=== PATIENT | male | born 1980 | race Caucasian/White ===

== ENCOUNTER 2020-06-13 12:47 | Inpatient (IN) | payer OTHER, SELFPAY ==
[~2020-06-13] VITALS: Ht 190.5 cm; Wt 108.9 kg
[2020-06-13 13:07] LABS: ABG BASE EXCESS -2.7 mmol/L (-2.0-3.0); ABG HCO3 20.6 mmol/L (21.0-28.0); ABG OXYGEN SATURATION 90.5 % (95.0-99.0); ABG PCO2 32 mmHg (35-48)
[2020-06-13 13:26] LABS: BASOPHILS % (AUTO) 0.2 % (0.0-5.0); HEMATOCRIT 42.7 % (42-54); LYMPHOCYTES % (AUTO) 7.6 % (21.0-51.0); MEAN CORPUSCULAR HEMOGLOBIN 29.1 pg (27.0-33.0); MEAN CORPUSCULAR HGB CONC 34.4 g/dL (32.0-36.0); MEAN CORPUSCULAR VOLUME 84.6 fL (79-99); MONOCYTES % (AUTO) 5.5 % (3.0-13.0); NEUTROPHILS % (AUTO) 85.3 % (40.0-77.0); PLATELET COUNT (AUTO) 177 K/uL (130-400); RED BLOOD CELL COUNT(AUTO) 5.05 MIL/uL (4.50-6.20); RED CELL DISTRIBUTION WIDTH 12.1 % (11.0-15.5); WHITE BLOOD COUNT (AUTO) 9.6 K/uL (4.8-10.8)
[2020-06-13 13:30] LABS: CREATININE 1.1 mg/dL (0.5-1.5); POTASSIUM 3.5 mmol/L (3.5-5.1)
[2020-06-13] MEDS ORDERED: DEXAMETHASONE SOD PHOSPHATE 10MG/ML 1ML VIAL ONE (13:31)
[2020-06-13] MEDS ORDERED: ALBUTEROL INHALER 90MCG/INH IH ONE (13:31)
[2020-06-13] MEDS ORDERED: ASPIRIN 325 MG TABLET ONE (13:31)
[2020-06-13] MEDS ORDERED: AZITHROMYCIN 250 MG TABLET PO ONE (13:32)
[2020-06-13] MEDS ORDERED: 0.9%NACL 100ML 100 ML IV ONE (13:32)
[2020-06-13] MEDS ORDERED: CEFTRIAXONE 1G VIAL ONE (13:32)
[2020-06-13 13:35] LABS: BILIRUBIN,TOTAL 0.5 mg/dL (0.2-1.0); TOTAL PROTEIN, SERUM 7.1 g/dL (6.0-8.3)
[2020-06-13 13:47] LABS: INR 1.04 (0.85-1.15); PROTHROMBIN TIME 11.1 SEC (9.6-11.6)
[2020-06-13 13:48] LABS: PARTIAL THROMBOPLASTIN TIME 28.1 SEC (26.3-35.5)
[2020-06-13 14:00] LABS: B-TYPE NATRIURETIC PEPTIDE 109 pg/mL (0-100)
[2020-06-13 16:30] LABS: APPEARANCE,URINE CLEAR (CLEAR); BILIRUBIN,URINE NEGATIVE (NEGATIVE); COLOR,URINE YELLOW (YELLOW); GLUCOSE, URINE (UA) NEGATIVE (NEGATIVE); KETONES,URINE NEGATIVE (NEGATIVE); LEUKOCYTE ESTERASE ,URINE NEGATIVE (NEGATIVE); NITRATE,URINE NEGATIVE (NEGATIVE); OCCULT BLOOD,URINE NEGATIVE (NEGATIVE); PROTEIN,URINE 100 mg/dL (NEGATIVE)
[2020-06-13] MEDS ORDERED: ERGOCALCIFEROL (VITAMIN D2) 50,000 UNIT CAPSULE PO ONE (17:00)
[2020-06-13] MEDS ORDERED: AZITHROMYCIN 500MG+NS 250ML 250 ML IV SCH (17:00)
[2020-06-13] MEDS ORDERED: ONDANSETRON 4MG INJ IV PRN (17:00)
[2020-06-13] MEDS: DOXYCYCLINE 100MG+NS 250ML 250 ML IV SCH (17:00)
[2020-06-13 17:09] LABS: BACTERIA,URINE Few /HPF (None Seen); MUCUS,URINE Few LPF (None Seen); RBC,URINE 0-1 /HPF (0-1); SQUAMOUS EPITHELIAL CELL,UR Few /HPF (0-2)
[2020-06-13] MEDS ORDERED: ACETAMINOPHEN 325 MG TAB ONE (18:46)
[2020-06-13] MEDS ORDERED: 0.9% NACL 250ML 250 ML IV ONE ×2 (19:29→22:24)
[2020-06-13] MEDS: FAMOTIDINE 20MG VIAL IV SCH (21:00)
[2020-06-13] MEDS: CEFTRIAXONE 1G VIAL IV SCH (21:00)
[2020-06-13] MEDS ORDERED: FAMOTIDINE 20MG VIAL IV ONE (21:03)
[2020-06-14] MEDS ORDERED: CEFTRIAXONE 1G VIAL ONE (01:30)
[2020-06-14 04:19] LABS: BASOPHILS % (AUTO) 0.1 % (0.0-5.0); HEMATOCRIT 39.8 % (42-54); LYMPHOCYTES % (AUTO) 10.8 % (21.0-51.0); MEAN CORPUSCULAR HEMOGLOBIN 28.4 pg (27.0-33.0); MEAN CORPUSCULAR HGB CONC 34.2 g/dL (32.0-36.0); MEAN CORPUSCULAR VOLUME 83.1 fL (79-99); MONOCYTES % (AUTO) 7.7 % (3.0-13.0); NEUTROPHILS % (AUTO) 79.2 % (40.0-77.0); PLATELET COUNT (AUTO) 191 K/uL (130-400); RED BLOOD CELL COUNT(AUTO) 4.79 MIL/uL (4.50-6.20); RED CELL DISTRIBUTION WIDTH 11.9 % (11.0-15.5); WHITE BLOOD COUNT (AUTO) 6.9 K/uL (4.8-10.8)
[2020-06-14 04:43] LABS: ALBUMIN 2.7 g/dL (3.5-5.0); BILIRUBIN,TOTAL 0.4 mg/dL (0.2-1.0); POTASSIUM 4.2 mmol/L (3.5-5.1); TOTAL PROTEIN, SERUM 6.8 g/dL (6.0-8.3)
[2020-06-14 04:56] LABS: CRP QUANTITATIVE 259.6 mg/L (0.00-9.0)
[2020-06-14] MEDS ORDERED: ACETAMINOPHEN 325 MG TAB ONE (06:45)
[2020-06-14] MEDS: ENOXAPARIN SODIUM 40 MG/0.4 ML SYRINGE SQ SCH (10:27)
[2020-06-14] MEDS: ASCORBIC ACID 500 MG TAB PO SCH (10:27)
[2020-06-14] MEDS: CEFTRIAXONE 1G VIAL IV SCH ×2 (10:27→20:06)
[2020-06-14] MEDS: ZINC SULFATE 220 CAPSULE PO SCH (10:27)
[2020-06-14] MEDS: FAMOTIDINE 20MG VIAL IV SCH ×2 (10:27→20:03)
[2020-06-14] MEDS ORDERED: PHARMACY COMMUNICATION MISC SCH (12:00)
[2020-06-14] MEDS ORDERED: REMDESIVIR (EUA) 520 200 MG in 0.9% NACL 250ML 250 ML IV ONE (12:15)
[2020-06-14] MEDS ORDERED: COMPOUND IV REFRIGERATED 1 EACH IVSOLN MISC PRN (12:15)
[2020-06-14] MEDS ORDERED: DEXAMETHASONE SOD PHOSPHATE 4 MG/ML 1ML VIAL IVP SCH (16:30)
[2020-06-14] MEDS: DOXYCYCLINE 100MG+NS 250ML 250 ML IV SCH (16:51)
[2020-06-14 18:09] VITALS: BP 148/89
[2020-06-14 19:00] VITALS: BP 137/84
[2020-06-14] MEDS: DEXAMETHASONE SOD PHOSPHATE 4 MG/ML 1ML VIAL IVP SCH (20:03)
[2020-06-14] MEDS ORDERED: AZITHROMYCIN 500MG+NS 250ML 250 ML IV SCH (21:00)
[2020-06-14 23:58] VITALS: BP 134/81
[2020-06-14] MEDS: ACETAMINOPHEN 325 MG TAB PO PRN (23:58)
[2020-06-15 04:00] VITALS: BP 131/88
[2020-06-15] MEDS: DOXYCYCLINE 100MG+NS 250ML 250 ML IV SCH ×2 (04:32→16:51)
[2020-06-15 04:50] LABS: BASOPHILS % (AUTO) 0.1 % (0.0-5.0); HEMATOCRIT 41.1 % (42-54); LYMPHOCYTES % (AUTO) 11.6 % (21.0-51.0); MEAN CORPUSCULAR HEMOGLOBIN 28.2 pg (27.0-33.0); MEAN CORPUSCULAR HGB CONC 33.1 g/dL (32.0-36.0); MEAN CORPUSCULAR VOLUME 85.3 fL (79-99); MONOCYTES % (AUTO) 7.8 % (3.0-13.0); NEUTROPHILS % (AUTO) 78.3 % (40.0-77.0); PLATELET COUNT (AUTO) 245 K/uL (130-400); RED BLOOD CELL COUNT(AUTO) 4.82 MIL/uL (4.50-6.20); RED CELL DISTRIBUTION WIDTH 11.8 % (11.0-15.5); WHITE BLOOD COUNT (AUTO) 8.8 K/uL (4.8-10.8)
[2020-06-15 05:05] LABS: ALBUMIN 2.6 g/dL (3.5-5.0); BILIRUBIN,TOTAL 0.5 mg/dL (0.2-1.0); CRP QUANTITATIVE 115.4 mg/L (0.00-9.0); POTASSIUM 4.2 mmol/L (3.5-5.1); TOTAL PROTEIN, SERUM 6.6 g/dL (6.0-8.3)
[2020-06-15] MEDS: PHARMACY COMMUNICATION MISC SCH (06:00)
[2020-06-15 08:30] VITALS: BP 143/91
[2020-06-15] MEDS: FAMOTIDINE 20MG VIAL IV SCH ×2 (09:52→20:43)
[2020-06-15] MEDS: ZINC SULFATE 220 CAPSULE PO SCH (09:52)
[2020-06-15] MEDS: ASCORBIC ACID 500 MG TAB PO SCH (09:52)
[2020-06-15] MEDS: CEFTRIAXONE 1G VIAL IV SCH ×2 (09:53→20:43)
[2020-06-15] MEDS: ENOXAPARIN SODIUM 40 MG/0.4 ML SYRINGE SQ SCH (09:54)
[2020-06-15] MEDS: DEXAMETHASONE SOD PHOSPHATE 4 MG/ML 1ML VIAL IVP SCH ×2 (10:02→19:31)
[2020-06-15 11:00] VITALS: BP 138/92
[2020-06-15] MEDS: REMDESIVIR (EUA) 520 100 MG in 0.9% NACL 250ML 250 ML IV SCH (13:30)
[2020-06-15 16:00] VITALS: BP 142/83
[2020-06-15 19:00] VITALS: BP_SYST 121; BP_SYST 140; BP_DIAS 69; BP_DIAS 83
[2020-06-15] MEDS: ACETAMINOPHEN 325 MG TAB PO PRN (20:47)
[2020-06-16] VITALS: BP 135/82
[2020-06-16] MEDS: ACETAMINOPHEN 325 MG TAB PO PRN ×2 (01:49→22:26)
[2020-06-16 04:00] VITALS: BP 137/96
[2020-06-16 04:59] LABS: BASOPHILS % (AUTO) 0.4 % (0.0-5.0); HEMATOCRIT 42.1 % (42-54); LYMPHOCYTES % (AUTO) 12.2 % (21.0-51.0); MEAN CORPUSCULAR HEMOGLOBIN 28.8 pg (27.0-33.0); MEAN CORPUSCULAR VOLUME 84.7 fL (79-99); MONOCYTES % (AUTO) 9.6 % (3.0-13.0); NEUTROPHILS % (AUTO) 73.1 % (40.0-77.0); PLATELET COUNT (AUTO) 285 K/uL (130-400); RED BLOOD CELL COUNT(AUTO) 4.97 MIL/uL (4.50-6.20); RED CELL DISTRIBUTION WIDTH 11.5 % (11.0-15.5); WHITE BLOOD COUNT (AUTO) 7.4 K/uL (4.8-10.8)
[2020-06-16] MEDS: DOXYCYCLINE 100MG+NS 250ML 250 ML IV SCH ×2 (05:21→17:24)
[2020-06-16 05:26] LABS: ALBUMIN 2.6 g/dL (3.5-5.0); BILIRUBIN,TOTAL 0.5 mg/dL (0.2-1.0); CRP QUANTITATIVE 68.4 mg/L (0.00-9.0); POTASSIUM 4.2 mmol/L (3.5-5.1); TOTAL PROTEIN, SERUM 6.7 g/dL (6.0-8.3)
[2020-06-16 08:00] VITALS: BP 126/70
[2020-06-16] MEDS: FAMOTIDINE 20MG VIAL IV SCH ×2 (08:51→20:53)
[2020-06-16] MEDS: ASCORBIC ACID 500 MG TAB PO SCH (08:51)
[2020-06-16] MEDS: DEXAMETHASONE SOD PHOSPHATE 4 MG/ML 1ML VIAL IVP SCH ×2 (08:51→20:04)
[2020-06-16] MEDS: ZINC SULFATE 220 CAPSULE PO SCH (08:51)
[2020-06-16] MEDS: CEFTRIAXONE 1G VIAL IV SCH ×2 (08:51→20:53)
[2020-06-16] MEDS: ENOXAPARIN SODIUM 40 MG/0.4 ML SYRINGE SQ SCH (08:53)
[2020-06-16 12:00] VITALS: BP 143/96
[2020-06-16] MEDS: REMDESIVIR (EUA) 520 100 MG in 0.9% NACL 250ML 250 ML IV SCH (13:23)
[2020-06-16 18:23] VITALS: BP 144/78
[2020-06-16 19:00] VITALS: BP 142/81
[2020-06-17] VITALS: BP 134/79
[2020-06-17 04:00] VITALS: BP 124/76
[2020-06-17] MEDS: DOXYCYCLINE 100MG+NS 250ML 250 ML IV SCH (05:41)
[2020-06-17 05:50] LABS: BASOPHILS % (AUTO) 0.6 % (0.0-5.0); EOSINOPHILS % (AUTO) 0.1 % (0.0-8.0); HEMATOCRIT 44.5 % (42-54); LYMPHOCYTES % (AUTO) 11.9 % (21.0-51.0); MEAN CORPUSCULAR HEMOGLOBIN 28.3 pg (27.0-33.0); MEAN CORPUSCULAR HGB CONC 34.2 g/dL (32.0-36.0); MEAN CORPUSCULAR VOLUME 82.7 fL (79-99); MONOCYTES % (AUTO) 10.2 % (3.0-13.0); NEUTROPHILS % (AUTO) 69.7 % (40.0-77.0); PLATELET COUNT (AUTO) 309 K/uL (130-400); RED BLOOD CELL COUNT(AUTO) 5.38 MIL/uL (4.50-6.20); RED CELL DISTRIBUTION WIDTH 11.5 % (11.0-15.5); WHITE BLOOD COUNT (AUTO) 10.8 K/uL (4.8-10.8)
[2020-06-17 06:11] LABS: ALBUMIN 2.9 g/dL (3.5-5.0); BILIRUBIN,TOTAL 0.7 mg/dL (0.2-1.0); CRP QUANTITATIVE 31.4 mg/L (0.00-9.0); POTASSIUM 4.4 mmol/L (3.5-5.1); TOTAL PROTEIN, SERUM 6.3 g/dL (6.0-8.3)
[2020-06-17 08:05] VITALS: BP 159/78
[2020-06-17] MEDS: CEFTRIAXONE 1G VIAL IV SCH ×2 (08:36→20:11)
[2020-06-17] MEDS: ASCORBIC ACID 500 MG TAB PO SCH (08:37)
[2020-06-17] MEDS: FAMOTIDINE 20MG VIAL IV SCH ×2 (08:37→20:11)
[2020-06-17] MEDS: ZINC SULFATE 220 CAPSULE PO SCH (08:37)
[2020-06-17] MEDS: ENOXAPARIN SODIUM 40 MG/0.4 ML SYRINGE SQ SCH (08:39)
[2020-06-17] MEDS: DEXAMETHASONE SOD PHOSPHATE 4 MG/ML 1ML VIAL IVP SCH (09:15)
[2020-06-17] MEDS: REMDESIVIR (EUA) 520 100 MG in 0.9% NACL 250ML 250 ML IV SCH (13:39)
[2020-06-17 14:24] VITALS: BP 130/66
[2020-06-17 20:00] VITALS: BP 122/68
[2020-06-18 00:39] VITALS: BP 120/70
[2020-06-18 04:18] VITALS: BP 115/64
[2020-06-18 05:33] LABS: BASOPHILS % (AUTO) 0.9 % (0.0-5.0); EOSINOPHILS % (AUTO) 0.8 % (0.0-8.0); HEMATOCRIT 43.6 % (42-54); LYMPHOCYTES % (AUTO) 15.8 % (21.0-51.0); MEAN CORPUSCULAR HEMOGLOBIN 28.6 pg (27.0-33.0); MEAN CORPUSCULAR HGB CONC 34.4 g/dL (32.0-36.0); MEAN CORPUSCULAR VOLUME 83.2 fL (79-99); MONOCYTES % (AUTO) 9.8 % (3.0-13.0); NEUTROPHILS % (AUTO) 63.5 % (40.0-77.0); PLATELET COUNT (AUTO) 288 K/uL (130-400); RED BLOOD CELL COUNT(AUTO) 5.24 MIL/uL (4.50-6.20); RED CELL DISTRIBUTION WIDTH 11.4 % (11.0-15.5); WHITE BLOOD COUNT (AUTO) 11.5 K/uL (4.8-10.8)
[2020-06-18] MEDS: DOXYCYCLINE 100MG+NS 250ML 250 ML IV SCH ×2 (05:42→16:56)
[2020-06-18 05:54] LABS: ALBUMIN 2.7 g/dL (3.5-5.0); BILIRUBIN,TOTAL 0.7 mg/dL (0.2-1.0); CREATININE 1.1 mg/dL (0.5-1.5); CRP QUANTITATIVE 40.6 mg/L (0.00-9.0); POTASSIUM 4.2 mmol/L (3.5-5.1); TOTAL PROTEIN, SERUM 6.5 g/dL (6.0-8.3)
[2020-06-18] MEDS: PHARMACY COMMUNICATION MISC SCH (06:00)
[2020-06-18] MEDS: ZINC SULFATE 220 CAPSULE PO SCH (08:21)
[2020-06-18] MEDS: DEXAMETHASONE SOD PHOSPHATE 4 MG/ML 1ML VIAL IVP SCH (08:21)
[2020-06-18] MEDS: FAMOTIDINE 20MG VIAL IV SCH ×2 (08:21→20:20)
[2020-06-18] MEDS: ASCORBIC ACID 500 MG TAB PO SCH (08:21)
[2020-06-18] MEDS: CEFTRIAXONE 1G VIAL IV SCH ×2 (08:21→20:20)
[2020-06-18] MEDS: ENOXAPARIN SODIUM 40 MG/0.4 ML SYRINGE SQ SCH (08:22)
[2020-06-18 09:05] VITALS: BP 151/74
[2020-06-18 13:03] VITALS: BP 139/75
[2020-06-18] MEDS: REMDESIVIR (EUA) 520 100 MG in 0.9% NACL 250ML 250 ML IV SCH (14:10)
[2020-06-18 17:28] VITALS: BP 139/73
[2020-06-18 20:00] VITALS: BP 139/75
[2020-06-19 00:51] VITALS: BP 123/75
[2020-06-19 03:57] VITALS: BP 103/57
[2020-06-19] MEDS: DOXYCYCLINE 100MG+NS 250ML 250 ML IV SCH ×2 (05:40→17:05)
[2020-06-19 05:43] LABS: BASOPHILS % (AUTO) 0.8 % (0.0-5.0); EOSINOPHILS % (AUTO) 1.1 % (0.0-8.0); HEMATOCRIT 43.8 % (42-54); LYMPHOCYTES % (AUTO) 14.3 % (21.0-51.0); MEAN CORPUSCULAR VOLUME 82.3 fL (79-99); MONOCYTES % (AUTO) 10.1 % (3.0-13.0); NEUTROPHILS % (AUTO) 63.8 % (40.0-77.0); PLATELET COUNT (AUTO) 313 K/uL (130-400); RED BLOOD CELL COUNT(AUTO) 5.32 MIL/uL (4.50-6.20); RED CELL DISTRIBUTION WIDTH 11.5 % (11.0-15.5)
[2020-06-19 06:23] LABS: ALBUMIN 2.6 g/dL (3.5-5.0); BILIRUBIN,TOTAL 0.6 mg/dL (0.2-1.0); CREATININE 1.1 mg/dL (0.5-1.5); CRP QUANTITATIVE 60.6 mg/L (0.00-9.0); POTASSIUM 3.9 mmol/L (3.5-5.1); TOTAL PROTEIN, SERUM 6.3 g/dL (6.0-8.3)
[2020-06-19] MEDS: DEXAMETHASONE SOD PHOSPHATE 4 MG/ML 1ML VIAL IVP SCH (08:26)
[2020-06-19] MEDS: ZINC SULFATE 220 CAPSULE PO SCH (08:27)
[2020-06-19] MEDS: ASCORBIC ACID 500 MG TAB PO SCH (08:27)
[2020-06-19] MEDS: ENOXAPARIN SODIUM 40 MG/0.4 ML SYRINGE SQ SCH (08:28)
[2020-06-19] MEDS: CEFTRIAXONE 1G VIAL IV SCH ×2 (08:31→21:18)
[2020-06-19] MEDS: FAMOTIDINE 20MG VIAL IV SCH ×2 (08:31→21:17)
[2020-06-19 10:24] VITALS: BP 115/61
[2020-06-19 12:00] VITALS: BP 130/55
[2020-06-19 16:00] VITALS: BP 141/68
[2020-06-19 19:00] VITALS: BP 110/51
[2020-06-19] MEDS: ACETAMINOPHEN 325 MG TAB PO PRN (23:46)
[2020-06-20] VITALS: BP 115/65
[2020-06-20 03:47] VITALS: BP 111/69
[2020-06-20] MEDS: DOXYCYCLINE 100MG+NS 250ML 250 ML IV SCH ×2 (04:44→16:36)
[2020-06-20 06:41] LABS: BASOPHILS % (AUTO) 0.6 % (0.0-5.0); EOSINOPHILS % (AUTO) 1.2 % (0.0-8.0); HEMATOCRIT 43.7 % (42-54); LYMPHOCYTES % (AUTO) 15.8 % (21.0-51.0); MEAN CORPUSCULAR HEMOGLOBIN 28.3 pg (27.0-33.0); MEAN CORPUSCULAR HGB CONC 34.1 g/dL (32.0-36.0); MEAN CORPUSCULAR VOLUME 82.9 fL (79-99); MONOCYTES % (AUTO) 10.3 % (3.0-13.0); NEUTROPHILS % (AUTO) 61.9 % (40.0-77.0); PLATELET COUNT (AUTO) 332 K/uL (130-400); RED BLOOD CELL COUNT(AUTO) 5.27 MIL/uL (4.50-6.20); RED CELL DISTRIBUTION WIDTH 11.7 % (11.0-15.5); WHITE BLOOD COUNT (AUTO) 11.6 K/uL (4.8-10.8)
[2020-06-20 06:57] LABS: POTASSIUM 4.4 mmol/L (3.5-5.1)
[2020-06-20 08:00] VITALS: BP 92/49
[2020-06-20] MEDS: CEFTRIAXONE 1G VIAL IV SCH ×2 (09:07→20:10)
[2020-06-20] MEDS: ASCORBIC ACID 500 MG TAB PO SCH (09:07)
[2020-06-20] MEDS: ZINC SULFATE 220 CAPSULE PO SCH (09:07)
[2020-06-20] MEDS: DEXAMETHASONE SOD PHOSPHATE 4 MG/ML 1ML VIAL IVP SCH (09:08)
[2020-06-20] MEDS: ENOXAPARIN SODIUM 40 MG/0.4 ML SYRINGE SQ SCH (09:08)
[2020-06-20] MEDS: FAMOTIDINE 20MG TAB PO SCH ×2 (12:23→20:10)
[2020-06-20 12:28] VITALS: BP 110/57
[2020-06-20 16:00] VITALS: BP 114/72
[2020-06-20 19:00] VITALS: BP 115/71
[2020-06-21] VITALS: BP 101/59
[2020-06-21 04:00] VITALS: BP 128/61
[2020-06-21] MEDS: DOXYCYCLINE 100MG+NS 250ML 250 ML IV SCH (05:35)
[2020-06-21 08:00] VITALS: BP 106/55
[2020-06-21] MEDS: ASCORBIC ACID 500 MG TAB PO SCH (09:00)
[2020-06-21] MEDS: ZINC SULFATE 220 CAPSULE PO SCH (09:01)
[2020-06-21] MEDS: FAMOTIDINE 20MG TAB PO SCH (09:01)
[2020-06-21] MEDS: CEFTRIAXONE 1G VIAL IV SCH (09:01)
[2020-06-21] MEDS: ENOXAPARIN SODIUM 40 MG/0.4 ML SYRINGE SQ SCH (09:01)
[2020-06-21] MEDS: DEXAMETHASONE SOD PHOSPHATE 4 MG/ML 1ML VIAL IVP SCH (09:01)
[2020-06-21 11:59] VITALS: BP 110/69
[2020-06-21] MEDS ORDERED: APIX2.5T PO (16:08)
[2020-06-21] MEDS ORDERED: FAMO20TA8 PO (16:08)
[2020-06-21] MEDS ORDERED: DEXA4 PO (16:08)
== END 2020-06-21 17:15 | disposition home or self-care (01) | DRG 177 ==
LOC: EDH 12:47 → EDHIP 12:48 → 4AH 06-14 07:55
PROVIDERS: ADMIT Family Medicine; ATTEND Family Medicine
PROC: XW13325 Transfusion of Convalescent Plasma (Nonautologous) into Peripheral Vein, Percutaneous Approach, New Technology Group 5 (ICD-10-PCS; principal; 2020-06-13)
PROC: XW033E5 Introduction of Remdesivir Anti-infective into Peripheral Vein, Percutaneous Approach, New Technology Group 5 (ICD-10-PCS; 2020-06-18)
DX: U07.1 COVID-19 (principal); J96.01 Acute respiratory failure with hypoxia; J12.81 Pneumonia due to SARS-associated coronavirus
CPT/HCPCS: 36415; 36600; 71045; 71250; 80048; 80053; 81001; 82550; 82728; 82803; 82948; 83605; 83615; 83880; 84145; 84484; 85025; 85378; 85610; 85730; 86140; 86900; 86901; 86927; 87040; 87426; 87804; 87880; 93005; 94760; 99291; G0378; J0696; J1100; J1650; J3490; J7050; U0003